=== PATIENT | male | born 1940 | race Caucasian/White ===

== ENCOUNTER 2016-04-16 11:02 | Emergency (ER) | payer MEDICARE ==
[2016-04-16 12:49] VITALS: BP 119/62
--- NOTE | 2016-04-16 13:08 | UC ---
Respiratory Complaint HPI - HPI Summary HPI Summary: 75 yo male with productive cough x 2 days Had 2 episodes of diarrhea no sinus symptoms no fever/chills no CP or SOB had recent surgery and he is concerned about getting her ill - History of Current Complaint Chief Complaint: UCGeneralIllness Stated Complaint: SINUSES,DIARRHEA Time Seen by Provider: 04/16/16 12:55 Hx Obtained From: Patient Onset/Duration: Gradual Onset, Lasting Days - 2 Timing: Constant Severity Initially: Mild Severity Currently: Moderate Pain Intensity: 0 Pain Scale Used: 0-10 Numeric Character: Cough: Productive - green Alleviating Factors: Nothing - Allergies/Home Medications Allergies/Adverse Reactions: Allergies Allergy/AdvReac Type Severity Reaction Status Date / Time seasonal allergy Allergy Eyes Uncoded 04/16/16 12:45 Itchy/Swollen/Red/Watery PMH/Surg Hx/FS Hx/Imm Hx Endocrine History Of: Denies: Diabetes Cardiovascular History Of: Reports: Cardiac Disorders - cardiac stents x 2, Hypertension Denies: Pacemaker/ICD GI/ History Of: Reports: Ulcer - Surgical History Surgical History: Yes Surgery Procedure, Year, and Place: Bilateral Carpal T[place], 06/20/15, [facility]; Colons[place], 05/28/15, [place] [facility], [facility]14, [facility]; Lens Transplant, 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, [place]; Cardiac Stent, 11/07/07, [facility]; Left TKA , ~1995, [place]; Right Foot Bunionectomy, ~1990, [place] - Family History Known Family History: Positive: Hypertension - Social History Alcohol Use: None Substance Use Type: None Smoking Status (MU): Former Smoker Type: Cigarettes Have You Smoked in the Last Year: No When Did the Patient Quit Smoking/Using Tobacco: 20 YRS AGO - Immunization History Most Recent Influenza Vaccination: 01/20/16 Most Recent Pneumonia Vaccination: 01/24/15 [id number] Review of Systems Constitutional: Negative Skin: Negative Eyes: Negative ENT: Negative Respiratory: Cough Cardiovascular: Negative Gastrointestinal: Negative Genitourinary: Negative Motor: Negative Neurovascular: Negative Musculoskeletal: Negative Neurological: Negative Psychological: Negative All Other Systems Reviewed And Are Negative: Yes Physical Exam Triage Information Reviewed: Yes Appearance: Well-Appearing, No Pain Distress, Well-Nourished Vital Signs: Initial Vital Signs Temp 98.3 F 04/16/16 12:40 Pulse 59 04/16/16 12:40 Resp 16 04/16/16 12:40 BP 119/62 04/16/16 12:40 Pulse Ox 100 04/16/16 12:40 Vital Signs Reviewed: Yes Eyes: Positive: Conjunctiva Clear ENT: Positive: Normal ENT inspection, Hearing grossly normal, TMs normal. Negative: Nasal congestion, Nasal drainage, Tonsillar exudate, Trismus, Muffled/ hoarse voice Neck: Positive: Supple, Nontender Respiratory: Positive: Chest non-tender, Lungs clear, Normal breath sounds, No respiratory distress Cardiovascular: Positive: RRR, No Murmur Musculoskeletal: Positive: Strength Intact, ROM Intact Neurological: Positive: Alert Psychological Exam: Normal Skin Exam: Normal UC Diagnostic Evaluation - Laboratory O2 Sat by Pulse Oximetry: 100 - normal/not hypoxic Respiratory Course/Dx - Differential Dx/Diagnosis Provider Diagnoses: acute bronchitis Discharge - Discharge Plan Condition: Stable Disposition: HOME Prescriptions: Amoxicillin (*) 875 mg PO BID #20 tab Patient Education Materials: Acute Bronchitis (ED) Referrals: Jesika Brandon MD [Primary Care Provider] - 4 Days (if not better)
== END 2016-04-16 13:06 | disposition home or self-care (01) ==
LOC: UCCORT 11:02
DX: J20.9 Acute bronchitis, unspecified (principal); Z98.61 Coronary angioplasty status; Z87.891 Personal history of nicotine dependence
CPT/HCPCS: 99212; G0463

== ENCOUNTER 2017-04-28 09:16 | Emergency (ER) | payer MEDICARE, OTHER ==
--- NOTE | 2017-04-28 10:10 | UC ---
Dizzy HPI HPI Summary: 76 year old male with complaints of being light headed , ear pressure, low grade fever, body aches since last night. No chest pain. No SOB. No dizziness. No vision changes. Mild BROWN. did have flu shot. Had stent and [place] in the past but no cardiac concerns per patient. - History Of Current Complaint Stated Complaint: HEADACHE LIGHT HEADED ACHY Time Seen by Provider: 04/28/17 09:33 Hx Obtained From: Patient, Family/[employer] Onset/Duration: Gradual Onset Character: Lightheaded Aggravating Factor(s): Nothing Alleviating Factor(s): Nothing - Risk Factors Cardiac Risk Factors: Hypertension, Elevated Lipids, Prior [place] - Allergies/Home Medications Allergies/Adverse Reactions: Allergies Allergy/AdvReac Type Severity Reaction Status Date / Time seasonal allergy Allergy Eyes Uncoded 04/16/16 12:45 Itchy/Swollen/Red/Watery Home Medications: Home Medications Clopidogrel TAB* [Plavix TAB*] 75 mg PO DAILY 04/28/17 [History Confirmed ] Naproxen Sodium [Naproxen Sodium 500 MG TAB] 500 mg PO BID PRN 04/28/17 [ History Confirmed 04/28/17] Phenylephrine-Chlorpheniramine [Eliana-Archer Plus Cold &] 2 cap PO Q4H PRN 04/28 [History Confirmed 04/28/17] PMH/Surg Hx/FS Hx/Imm Hx Previously Healthy: Yes Cardiovascular History: Cardiac Disease, Hypertension GI/ History: Gastroesophageal Reflux - Surgical History Surgical History: Yes Surgery Procedure, Year, and Place: Bilateral Carpal Tunnel, 06/20/15, [facility]; [place]onscopy, 05/28/15, [place] [facility], 02/[facility]14, [facility]; Lens Transplant, 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, [place]; Cardiac Stent, 11/07/07, [facility]; Left TKA , ~1995, [place]; Right Foot Bunionectomy, ~1990, [place] - Family History Known Family History: Positive: Hypertension - Social History Occupation: Retired Lives: With Family Alcohol Use: None Substance Use Type: None Smoking Status (MU): Former Smoker Type: Cigarettes Have You Smoked in the Last Year: No When Did the Patient Quit Smoking/Using Tobacco: 20 YRS AGO - Immunization History Most Recent Influenza Vaccination: 01/20/16 Most Recent Pneumonia Vaccination: 01/24/15 [id number] Review of Systems Constitutional: Fever, Chills, Fatigue ENT: Nasal Discharge Musculoskeletal: Myalgia Neurological: Other - lightheaded Is Patient Immunocompromised?: No All Other Systems Reviewed And Are Negative: Yes Physical Exam Triage Information Reviewed: Yes Appearance: Well-Appearing, No Pain Distress, Well-Nourished Vital Signs Reviewed: Yes Eye Exam: Normal ENT Exam: Normal Dental Exam: Normal Neck exam: Normal Neck: Positive: 1 Respiratory Exam: Normal Cardiovascular Exam: Normal Musculoskeletal Exam: Normal Neurological Exam: Normal Psychological Exam: Normal Skin Exam: Normal Dizzy Course/Dx - Course Course Of Treatment: Flu like illness. No cardiac complaints. URI and push fluids. If any worsening of Sx then go to ED . He agreeable. Stable Vitals. speaking in complete sentences. he feels ok and asks to go home tp push fluids and prefers to not go to ED. He is aware to go if he has any worsening Sx. - Differential Dx/Diagnosis Provider Diagnoses: Viral URI Discharge - Discharge Plan Condition: Good Disposition: HOME Patient Education Materials: Upper Respiratory Infection (ED) Referrals: Jesika Brandon MD [Primary Care Provider] - 1 Day Additional Instructions: Your flu test was negative today
[2017-04-28] MEDS ORDERED: Acetaminophen TAB* 325 MG PO ONE (10:49)
[2017-04-28 10:52] VITALS: BP 139/73
== END 2017-04-28 11:00 | disposition home or self-care (01) ==
LOC: UCCORT 09:16
DX: J06.9 Acute upper respiratory infection, unspecified (principal); I25.2 Old myocardial infarction; I10 Essential (primary) hypertension; Z95.5 Presence of coronary angioplasty implant and graft; K21.9 Gastro-esophageal reflux disease without esophagitis; E78.5 Hyperlipidemia, unspecified; Z87.891 Personal history of nicotine dependence
CPT/HCPCS: 87502; 93005; 99212; A9270-GY; G0463